=== PATIENT | female | born 1970 | race Caucasian/White ===

== ENCOUNTER 2018-03-03 09:33 | Emergency (ER) | payer OTHER ==
[2018-03-03 10:21] LABS: ADD MAN DIFF? NO
[2018-03-03 10:28] LABS: BASOPHIL # 0.1 10^3/ul (0.0-0.1); BASOPHILS % 0.8 % (0.0-2.0); EOSINOPHILS # 0.2 10^3/ul (0.0-0.5); EOSINOPHILS % 3.5 % (0.0-7.0); HEMOGLOBIN 13.3 g/dl (12.0-16.0); LYMPHOCYTES # 1.9 10^3/ul (0.8-2.9); LYMPHOCYTES % 28.9 % (15.0-51.0); MEAN CORPUSCULAR HEMOGLOBIN 28.4 pg (29.0-33.0); MEAN CORPUSCULAR HGB CONC 32.4 g/dl (32.0-37.0); MEAN CORPUSCULAR VOLUME 87.6 fl (82.0-101.0); MEAN PLATELET VOLUME 9.5 fl (7.4-10.4); MONOCYTE # 0.5 10^3/ul (0.3-0.9); NEUTROPHIL # 3.9 10^3/ul (1.6-7.5); PLATELET COUNT 260 10^3/UL (140-415); RED BLOOD COUNT 4.68 10^6/ul (4.20-5.40); RED CELL DISTRIBUTION WIDTH 13.2 % (11.5-14.5)
[2018-03-03 10:28] LABS: WHITE BLOOD COUNT 6.6 10^3/ul (4.8-10.8)
[2018-03-03 10:56] LABS: CARBON DIOXIDE 28 mmol/L (21-31); CHLORIDE 99 mmol/L (97-110); POTASSIUM 4.5 mmol/L (3.5-5.1); SODIUM 140 mmol/L (135-144)
[2018-03-03 10:57] LABS: ALANINE AMINOTRANSFERASE 44 IU/L (13-69); ALBUMIN 4.2 g/dl (3.3-4.9); ALKALINE PHOSPHATASE 164 IU/L (42-121); ANION GAP 13 (5-13); ASPARTATE AMINO TRANSFERASE 45 IU/L (15-46); BILIRUBIN,INDIRECT 0.3 mg/dl (0-1.1); BILIRUBIN,TOTAL 0.3 mg/dl (0.2-1.3); BLOOD UREA NITROGEN 15 mg/dl (7-20); CALCIUM 9.4 mg/dl (8.4-10.2); CREATININE 0.59 mg/dl (0.44-1.00); Estimated GFR > 60 mL/min (>60); GLUCOSE 330 mg/dl (70-220); TOTAL PROTEIN 7.2 g/dl (6.1-8.1)
[2018-03-03 11:08] LABS: TROPONIN-I < 0.012 ng/ml (0.000-0.120)
== END 2018-03-03 11:35 | disposition home or self-care (01) ==
LOC: FTE 09:33
DX: R07.9 Chest pain, unspecified (principal); R22.31 Localized swelling, mass and lump, right upper limb
CPT/HCPCS: 36415; 71045; 73070; 80053; 84484; 85025; 93005; 99285-25